=== PATIENT | male | born 1950 | race Caucasian/White ===

== ENCOUNTER → 2018-12-22 08:52 | Outpatient (BNVA) | payer MEDICARE, BC, SELFPAY | PROVIDERS: PCP Internal Medicine; Visit Provider Orthopaedic Surgery | DX: Z47.1 Aftercare following joint replacement surgery (principal); Z96.651 Presence of right artificial knee joint | CPT/HCPCS: 99213; 99241 ==

== ENCOUNTER 2020-09-20 14:33 | Outpatient (CLI) | payer MEDICARE, BC, SELFPAY ==
--- NOTE | 2020-09-20 11:00 | DI.RAD_ITS ---
EXAM: XR KNEE RT 3V AP,LAT,ZUHAIR CLINICAL HISTORY: right knee pain. TECHNIQUE: 2D digital imaging was performed. COMPARISON: CR RIGHT KNEE LIMITED 1 OR 2 VIEW from 12/16/2016 CR CHEST 2 VIEWS PA,LAT from 06/20/2017 FINDINGS: BONES: There are stable post operative changes present. No fracture or dislocation. JOINTS: The joint spaces are well maintained. No joint effusion is present. SOFT TISSUE: Normal. IMPRESSION: Stable postoperative changes. DATA REPOSITORY: RADIATION DOSE DELIVERED:
== END 2020-09-20 14:53 ==
PROVIDERS: PCP Internal Medicine; Referring Provider Internal Medicine; Visit Provider Orthopaedic Surgery
DX: M25.561 Pain in right knee (principal); M70.51 Other bursitis of knee, right knee; Z96.651 Presence of right artificial knee joint
CPT/HCPCS: 73562; 99213